=== PATIENT | female | born 1960 | race Caucasian/White ===

== ENCOUNTER → 2020-04-18 | Outpatient (CLI) | payer OTHER ==
[~2020-04-18] MED LIST: Norco 5-325 Ta1 EACH PO; ONDA4 PO
[2020-04-20 16:11] LABS: CORONAVIRUS (COVID19) CSH-NRL Negative (Negative)
== END | disposition home or self-care (01) ==
LOC: LAB EV 17:04 → LAB SHORT 17:04
PROVIDERS: Physician Assistant Medical
DX: Z20.828 Contact with and (suspected) exposure to other viral communicable diseases (principal)
CPT/HCPCS: U0003

== ENCOUNTER → 2023-04-17 | Outpatient (CLI) | payer BC | LOC: LAB SHORT 17:36 → LAB 17:36 | PROVIDERS: Hospitalist | DX: Z12.4 Encounter for screening for malignant neoplasm of cervix (principal) | CPT/HCPCS: G0145 ==